=== PATIENT | female | born 2000 | race Asian ===

== ENCOUNTER 2019-07-12 18:56 | Inpatient (IN) | payer BC ==
[2019-07-12 19:24] VITALS: BP 106/70
--- NOTE | 2019-07-12 19:30 | ED ---
Psychiatric Complaint - HPI Summary HPI Summary: Patient is a 19 y/o F presenting to [facility] for SI. She states that "a lot of bad news came at once" this week. Patient reports that she had become "sad" and began to have SI. She denies plan of SI, prior attempts, Hx of psychiatric issues, and daily medications. Patient states that she has "calmed down" now and that she just feels "sad" currently. Home medications and allergies are reviewed. - History Of Current Complaint Time Seen by Provider: 07/12/19 19:21 Hx Obtained From: Patient Onset/Duration: Still Present - states that she just feels "sad" currently Character: Depressed Aggravating Factor(s): Recent Stress Has Suicidal: Reports: Thoughts. Denies: With A Plan, Demonstrates Gesture, Has Prior Attempt(s) - Allergies/Home Medications Allergies/Adverse Reactions: Allergies Allergy/AdvReac Type Severity Reaction Status Date / Time azithromycin [From Zithromax] Allergy Hives Verified 07/12/19 19:33 Home Medications: Home Medications Cetirizine* [ZyrTEC 10 MG TAB*] 10 mg PO DAILY 07/12/19 [History Confirmed 07/12] PMH/Surg Hx/FS Hx/Imm Hx Sensory History: Denies: Hx Legally Blind, Hx Deafness Opthamlomology History: Denies: Hx Legally Blind EENT History: Denies: Hx Deafness - Family History Known Family History: Positive: Other - no FMHx of depression - Social History Occupation: Student Substance Use Type: Reports: None Smoking Status (MU): Never Smoked Tobacco Review of Systems Negative: Fever - on vitals, temp is 98.2 F Psychological: Other - positive - SI All Other Systems Reviewed And Are Negative: Yes Physical Exam - Summary Physical Exam Summary: Appearance: The patient is well-nourished in no acute distress and in no acute pain. Skin: The skin is warm and dry, and skin color reflects adequate perfusion. HEENT: The head is normocephalic and atraumatic. The pupils are equal and reactive. The conjunctivae are clear and without drainage. Nares are patent and without drainage. Mouth reveals moist mucous membranes, and the throat is without erythema and exudate. The external ears are intact. The ear canals are patent and without drainage. The tympanic membranes are intact. Neck: The neck is supple with full range of motion and non-tender. There are no carotid bruits. There is no neck vein distension. Respiratory: Chest is non-tender. Lungs are clear to auscultation and breath sounds are symmetrical and equal. Cardiovascular: Heart is regular rate and rhythm. There is no murmur or rub auscultated. There is no peripheral edema and pulses are symmetrical and equal. Abdomen: The abdomen is soft and non-tender. There are normal bowel sounds heard in all four quadrants and there is no organomegaly palpated. Musculoskeletal: There is no back tenderness noted. Extremities are non-tender with full range of motion. There is good capillary refill. There is no peripheral edema or calf tenderness elicited. Neurological: Patient is alert and oriented to person, place and time. The patient has symmetrical motor strength in all four extremities. Cranial nerves are grossly intact. Deep tendon reflexes are symmetrical and equal in all four extremities. Psychiatric: Patient is emotionally labile and tearful. Triage Information Reviewed: Yes Vital Signs On Initial Exam: Initial Vitals Temp Pulse Resp BP Pulse Ox 98.2 F 64 16 106/70 98 07/12/19 19:10 07/12/19 19:10 07/12/19 19:10 07/12/19 19:10 07/12/19 19:10 Vital Signs Reviewed: Yes Procedures - Sedation Patient Received Moderate/Deep Sedation with Procedure: No Diagnostics - Laboratory Result Diagrams: 07/12/19 21:35 07/12/19 21:35 Lab Statement: Any lab studies that have been ordered have been reviewed, and results considered in the medical decision making process. Re-Evaluation - Re-Evaluation First Eval Re-Evaluation Time: 19:25 Comment: Patient was cleared for MHE. Course/Dx - Course Course Of Treatment: Ms. Remy was medically cleared in the department and underwent a mental health eval. They felt she was safe for discharge. - Differential Dx/Clinical Impression Provider Diagnosis: Adjustment disorder - Physician Notifications Time Discussed With Above Provider: 22:03 Discharge ED - Sign-Out/Discharge Documenting (check all that apply): Patient Departure - admit - Discharge Plan Condition: Stable Disposition: [place]CHIATRIC FAC[place] [place] Billing Disposition and Condition Condition: STABLE Disposition: Psychiatric Facility [facility] [place] - Attestation Statements Document Initiated by Scribe: Yes Documenting Scribe: YAIR LEYVA Provider For Whom Scribe is Documenting (Include Credential): GIANNA QURESHI MD Scribe Attestation: I, YAIR LEYVA, scribed for GIANNA QURESHI MD on 07/13/19 at 1015. Scribe Documentation Reviewed: Yes Provider Attestation: The documentation as recorded by the scribe, YAIR LEYVA accurately reflects the service I personally performed and the decisions made by me, GIANNA QURESHI MD Status of Scribe Document: Viewed
[2019-07-12 21:34] LABS: Urine Appearance Clear; Urine Bilirubin Negative (Negative); Urine Blood Negative (Negative); Urine Color Straw; Urine Glucose Negative (Negative); Urine Ketones Negative (Negative); Urine Nitrite Negative (Negative); Urine Protein Negative (Negative); Urine Specific Gravity 1.008 (1.010-1.030); Urine Urobilinogen Negative (Negative)
[2019-07-12 21:44] LABS: ABS Basophils 0.1 10^3/ul (0-0.2); ABS Eosinophils 0.2 10^3/ul (0-0.6); ABS Monocytes 0.7 10^3/ul (0-0.8); ABS Neutrophils 5.2 10^3/ul (1.5-7.7); Eosinophil % 2.9 %; Hematocrit 39 % (35-47); Hemoglobin 13.4 g/dL (12.0-16.0); Lymphocyte % 24.7 %; Mean Corpuscular HGB Conc 34 g/dL (31-36); Mean Corpuscular Hemoglobin 31 pg (27-31); Mean Corpuscular Volume 90 fL (80-97); Mean Platelet Volume 7.2 fL (7.4-10.4); Platelet Count 263 10^3/uL (150-450); Red Blood Count 4.39 10^6 /uL (3.70-4.87); Red Cell Distribution Width 14 % (10-15); White Blood Count 8.2 10^3/uL (3.5-10.8)
[2019-07-12 21:52] LABS: Urine Benzodiazepine Screen None Detected (None Detect); Urine Opiates Screen None Detected (None Detect)
[2019-07-12 22:01] LABS: ALT 17 U/L (7-52); AST 21 U/L (13-39); Albumin 4.7 g/dL (3.2-5.2); Albumin/Globulin Ratio 1.4 (1-3); Alkaline Phosphatase 61 U/L (34-104); Anion Gap 4 mmol/L (2-11); Blood Urea Nitrogen 20 mg/dL (6-24); CO2 Carbon Dioxide 29 mmol/L (22-32); Chloride 102 mmol/L (101-111); EGFR African American 131.2 (>60); EGFR Non-African American 108.5 (>60); Globulin 3.3 g/dL (2-4); Glucose 97 mg/dL (70-100); Potassium 4.3 mmol/L (3.5-5.0); Sodium 135 mmol/L (135-145)
[2019-07-12 22:13] LABS: Acetaminophen < 15 mcg/mL; Alcohol < 10 mg/dL (<10); Salicylate < 2.50 mg/dL (<30)
[2019-07-12 22:30] LABS: TSH (Thyroid Stimulating Horm) 0.84 mcIU/mL (0.34-5.60)
[2019-07-13] MEDS ORDERED: Al Hydrox/Mg Hydrox/Simet LIQ* 30 ML UDC PO PRN (00:45)
[2019-07-13] MEDS ORDERED: Acetaminophen TAB* 325 MG PO PRN (00:45)
[2019-07-13 08:43] LABS: HDL Cholesterol 55.2 mg/dL
[2019-07-13] MEDS ORDERED: Vitamin THERAPEUTIC TAB PO SCH (09:00)
[2019-07-13] MEDS ORDERED: Cetirizine* 10 MG TAB PO SCH (09:00)
--- NOTE | 2019-07-13 16:18 | HP ---
HISTORY AND PHYSICAL/DISCHARGE SUMMARY: DATE OF ADMISSION: 07/12/19 DATE OF DISCHARGE: 07/13/19 PROVIDER: Kristin Zuniga NP, in Psychiatry. SUPERVISING PHYSICIAN: Sammy Sidhu MD * (DICTATED BY KRISTIN ZUNIGA NP ) JUSTIFICATION FOR ADMISSION: The patient is in need of 24-hour supervision and care secondary to suicidal ideation. CHIEF COMPLAINT: "It has been hard to decide what to put on pause." HISTORY OF PRESENT ILLNESS: The patient is a 19-year-old single [place]- [place] female with no psychiatric history, who arrives, brought in by an ambulance after getting bad news and telling her friends who needed her to go to the hospital. Inge has had lots of stressors at once. She therefore had suicidal ideation. She states "I got over it so fast." She was sad in the hospital lobby, but during the wait she processed it with her friends. Apparently, she did poorly on a test, but now that she has processed that information, she realizes she can drop that class or talk to the professor. She thinks that she has overcommitted to extracurricular activities. In fact, when deciding that she wants to leave today, she said "well, I have an appointment at noon and an audition at 6, so I really need to go." At that moment, she actually appeared slightly frazzled versus the calm and together aspect she showed during most of the interview. She states that there has been a lot of family stress. She talks to her mother most of the time to talk about her problems, but they were having a disagreement and were not speaking. Now that the misunderstandings have been worked out and she's talking to mom again, she feels foolish for having been suicidal yesterday. In looking ahead, she states "I think I am going to put research on pause" and she is cautioned that being overcommitted does not allow time for herself and that some things must be put on hold while she gets some therapy to develop new coping strategies. She had momentary disruption in her ability to concentrate and thoughts of suicide. PAST PSYCHIATRIC HISTORY: None. PAST MEDICAL HISTORY: Seasonal allergies. SUBSTANCE ABUSE HISTORY: None. MEDICATIONS: She also takes Zyrtec. ALLERGIES: AZITHROMYCIN. FAMILY HISTORY: None. SOCIAL HISTORY: She is from [place], [place]. She lives off campus here in [place], [place]. 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 REVIEW OF SYSTEMS: The patient reports feeling fatigued. She denies shortness of breath, heat or cold intolerance, chest pain or abdominal pain. She denies neurological symptoms. She denies fevers or changes in weight. PHYSICAL EXAMINATION GENERAL APPEARANCE: The patient is well nourished, in no acute distress and in no acute pain. VITAL SIGNS: On 07/12/19 at 2315, temperature was 98.2, pulse 64, respirations 16, O2 sat on room air 98%, blood pressure 106/70. HEENT: The head is normocephalic and atraumatic. The pupils are equal and reactive. The conjunctivae are clear and without drainage. Nares are patent and without drainage. Mouth reveals moist mucous membranes and the throat is without erythema or exudate. The external ears are intact. The ear canals are patent and without drainage. The tympanic membranes are intact. NECK: The neck is supple with full range of motion and nontender. There are no carotid bruits. There is no neck vein distention. RESPIRATORY: Chest is nontender. Lungs are clear to auscultation and breath sounds are symmetrical and equal. CARDIOVASCULAR: Heart is regular rate and rhythm. There is no murmur or rub auscultated. There is no peripheral edema and pulses are symmetrical and even. ABDOMEN: The abdomen is soft and nontender. There are normal bowel sounds heard in all 4 quadrants and there is no organomegaly palpated. MUSCULOSKELETAL: There is no back tenderness noted. Extremities are nontender with full range of motion. There is good capillary refill. There is no peripheral edema or calf tenderness elicited. NEUROLOGICAL: The patient is alert and oriented to person, place, time, and situation. She has symmetrical motor strength in all 4 extremities. Cranial nerves are grossly intact. Deep tendon reflexes are symmetrical and equal in all 4 extremities. SKIN: The skin is warm and dry, and skin color reflects adequate perfusion. LABORATORY DATA: Generally within normal limits. Exceptions include MPV low at 7.2, BUN/creatinine ratio high at 29. Urine specific gravity low at 1.008. Toxicology screen is clear. 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 Her grooming is adequate. She is calm and cooperative and sits quietly on her bed. Her speech is of a normal rate, tone, and volume. She appears to be euthymic , although quite anxious in spite of herself. Her thought processes are normal. She is free of delusions. She is not homicidal or suicidal. She is not having hallucinations. Her insight is good. Her judgment is fair. She is alert and oriented x4. DIAGNOSIS: Adjustment disorder, NOS. 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 She rapidly regained her ict support technicians on what her life truly looked like meaning that she was quickly able to process what happened and no longer wanted suicidal thoughts and they disappeared. PLAN: The patient is admitted to the adult behavioral health unit and placed on 15- minute checks for her own safety. She is encouraged to participate in supportive milieu, individual, and group therapies. Estimated length of stay is 1 to 2 days. We will titrate medications to efficacy if she chooses to get medications. We will monitor for mood and thought content. Discharge planning will include family involvement and outpatient providers. CONDITION AT THE TIME OF DISCHARGE: Inge is improved. She is stable. She did not participate in groups because she was not here long enough to do so. Her father is agreeable to discharge. She has done well here psychiatrically. She did not start any new medications. She will be attending [facility]. MENTAL STATUS EXAMINATION AT THE TIME OF DISCHARGE: Inge is calm and cooperative. She makes good eye contact. She is alert and oriented x4. Her grooming is good. Her speech pace is normal. Her thought processes are logical. She is not psychotic or delusional. She denies AH, VH, SI, and HI. She is willing to follow up and she is urged to see a therapist. DISCHARGE INSTRUCTIONS TO THE PATIENT: A. Medications: None. B. Diet is regular. C. Activities: As tolerated. She is a nonsmoker. There are no studies pending at the time of discharge. D. Followup care: She is referred to [facility] to meet with Gretchen Clark at the [facility] Building level 3 at 3:30 p.m. E. Disposition: She is being discharged to her apartment off [address]. F. Substance abuse followup: Not indicated. HOSPITAL COURSE: Psychiatric treatment was rendered. She was admitted to the adult behavioral unit and placed on 15-minute checks for safety. She did well on the unit. She managed to maintain composure and control. She interacted with peers appropriately. There were no medication changes made. There were no medication additions started. We did not meet with her family, but her father was contacted. No consults were entered. She is improved over her moments of evaluation when she was distressed and distraught. She is now holding herself together and calling herself "stupid" for her distress yesterday. She is encouraged strongly to see a therapist and to make time for her growth and positive mental health. She is future oriented. She is not suicidal. She is eager to leave. KRISTIN ZUNIGA, KOJO [id number]/CPS #: [id number] SHARYN
== END 2019-07-13 12:35 | disposition home or self-care (01) | DRG 882 ==
LOC: ED 18:56 → BSU 21:37
PROVIDERS: ADMIT Psychiatry & Neurology Psychiatry; ATTEND Psychiatry & Neurology Psychiatry
DX: F43.20 Adjustment disorder, unspecified (principal); R45.851 Suicidal ideations; Z88.6 Allergy status to analgesic agent; Z79.899 Other long term (current) drug therapy
CPT/HCPCS: 36415; 80053; 80061; 80307; 80320; 80329; 81003; 83036; 84443; 85025; 99238; 99284; A9270-GY; G0480